=== PATIENT | male | born 1960 | race Caucasian/White ===

== ENCOUNTER → 2023-05-15 18:19 | Outpatient (REF) | payer BC, SELFPAY | LOC: MRI 18:19 | PROVIDERS: ATTENDING PHYSICIAN Podiatrist Primary Podiatric Medicine; FAMILY PHYSICIAN Family Medicine | DX: M87.076 Idiopathic aseptic necrosis of unspecified foot (principal) | CPT/HCPCS: 73720; A9575 ==

== ENCOUNTER 2023-09-18 06:12 | Day surgery (SDC) | payer BC, SELFPAY ==
[2023-09-18 07:15] VITALS: BMI 43.8
[2023-09-18 07:30] VITALS: BP 136/67
[2023-09-18 07:37] VITALS: BMI 43.8
[2023-09-18 09:16] VITALS: BP 112/69
[2023-09-18 09:30] VITALS: BP 126/69
[2023-09-18 09:37] VITALS: BP 119/70
== END 2023-09-18 09:45 | disposition home or self-care (01) ==
LOC: GI 06:12
PROVIDERS: ATTENDING PHYSICIAN Internal Medicine
DX: D12.3 Benign neoplasm of transverse colon (principal); K57.30 Diverticulosis of large intestine without perforation or abscess without bleeding; K64.8 Other hemorrhoids; R19.5 Other fecal abnormalities
CPT/HCPCS: 45385; 88305